=== PATIENT | female | born 2000 | race Caucasian/White ===

== ENCOUNTER 2024-05-24 19:19 | Emergency (ER) | payer BC, SELFPAY ==
[2024-05-24 19:29] VITALS: BP 126/85; PULSE 98; RESP 18; TEMP 36.8; O2SAT 98; BMI 21.5
--- NOTE | 2024-05-24 19:48 | ED.GENADULT ---
HPI - General Adult General Chief complaint: Urogenital Problems, Female Stated complaint: Severe Menstrual pain, nausea Time Seen by Provider: 05/24/24 19:38 Source: patient and family Mode of arrival: ambulatory Limitations: no limitations History of Present Illness HPI narrative: 23-year-old female presenting with painful menstrual cramps. Menses started today. Cramping started this morning. She took Naprosyn this morning which did help, Naprosyn this evening did not help as much. She has been lying in bed most of the day. Feels nauseated but has not vomited. No fevers or chills. Pain is suprapubic and bilateral. Radiate to her back. This is normal pain location when she has her menses. Patient states that 1 time she had pain this bad when she was a teenager that she can remember, otherwise she has pain that is quite uncomfortable but she can not tolerate it. Patient denies sexual activity. Denies diarrhea or constipation. Denies urinary frequency, urgency or dysuria. Denies pain radiating into the groin. Denies blood in her urine. Related Data Previous Rx's ?Medication ?Instructions ?Recorded ketorolac 10 mg tablet 10 mg PO TID 5 days #15 tabs 05/24/24 Allergies Allergy/AdvReac Type Severity Reaction Status Date / Time No Known Drug Allergies Allergy Verified 05/24/24 19:33 Review of Systems Status of ROS: Reports: 10 or more systems reviewed and unremarkable except as noted in History and below Exam Narrative: Exam Narrative: Well-nourished well-developed patient in no acute distress. Alert and oriented. Answers questions appropriately. Mood and affect are appropriate. Thoughts are goal oriented and rational. No tangential or magical thinking noted. Patient speaks in full sentences without needing to catch her breath. HEENT: Normocephalic atraumatic. Pupils are equally round reactive to light. Extraocular muscles are intact. Conjunctivae are moist without any icterus noted. Moist mucous membranes. Cardiovascular: Heart is regular rate and rhythm. Lungs: Clear to auscultation bilaterally. Abdomen: Soft and nondistended with normal bowel sounds. No guarding or rebound. She does have suprapubic tenderness. Extremities: Bilateral lower extremities are without edema. Skin: Well perfused without any obvious rashes. Const: Vital Signs, click to edit/add: Vital Signs - 24 hr 05/24/24 19:29 Temperature 98.3 F Pulse Rate [Right Pulse Oximeter] 98 Respiratory Rate 18 Blood Pressure [Ri ght Upper Arm] 126/85 Pulse Oximetry 98 Oxygen Delivery Me thod Room Air Course Course ED Course: Differential diagnoses includes dysmenorrhea. Less likely given the location and in association with her menses - appendicitis, pancreatitis, ischemic bowel. I do not think that this represents ovarian torsion. Other things to consider include UTI. At this point in time patient does not wish to have any laboratory investigations done as she has a fear of needles. She also does not want any IV or IM medications. Therefore we settled on oral Toradol and Zofran. We will also check a UA, urine test and urine culture. UA was unremarkable, test was negative. Patient felt significantly better after treatment. Vital Signs Vital signs: Initial Vital Signs Temperature 98.3 F 05/24/24 19:29 Temperature Source Temporal Artery Scan 05/24/24 19:29 Pulse Rate 98 05/24/24 19:29 Pulse Rhythm Regular 05/24/24 19:29 Pulse Strength 3+ Normal 05/24/24 19:29 Respiratory Rate 18 05/24/24 19:29 Blood Pressure 126/85 05/24/24 19:29 Blood Pressure Mean 98 05/24/24 19:29 Blood Pressure Position Sitting 05/24/24 19:29 Pulse Oximetry 98 05/24/24 19:29 Oxygen Delivery Method Room Air 05/24/24 19:29 Vital Signs Temperature 98.3 F 05/24/24 19:29 Pulse Rate 98 05/24/24 19:29 Respiratory Rate 18 05/24/24 19:29 Blood Pressure 126/85 05/24/24 19:29 Pulse Oximetry 98 05/24/24 19:29 Oxygen Delivery Method Room Air 05/24/24 19:29 Temperature 98.3 F 05/24/24 19:29 Pulse Rate 98 05/24/24 19:29 Respiratory Rate 18 05/24/24 19:29 Blood Pressure 126/85 05/24/24 19:29 Pulse Oximetry 98 05/24/24 19:29 Oxygen Delivery Method Room Air 05/24/24 19:29 Medications Administered Medications: Discontinued Medications Generic Name Dose Route Start Last Admin Trade Name Freq PRN Reason Stop Dose Admin Ketorolac Tromethamine 10 mg 05/24/24 19:43 05/24/24 19:50 Ketorolac 10 Mg Tablet PO 05/24/24 19:44 10 mg ONCE ONE Administration Ondansetron HCl 4 mg 05/24/24 19:43 05/24/24 19:51 Ondansetron Odt 4 Mg Tab PO 05/24/24 19:44 4 mg ONCE ONE Administration Medical Decision Making MDM Narrative Medical decision making narrative: 23-year-old female with dysmenorrhea. Will send the patient home with some Toradol to take as needed. Lab Data Lab results reviewed: Yes I reviewed the patient's lab results Labs: Lab Results 05/24/24 Range/Units 20:00 Urine Color Yellow (Yellow) Urine Appearance Slightly Cloudy A (Clear) Urine pH 7.5 (5.0-8.5) Ur Specific [place] 1.015 (1.000-1.030) Urine Protein Negative (Negative) Urine Glucose (UA) Negative (Negative) Urine Ketones Negative (Negative) Urine Blood 3+ A (Negative) Urine Nitrite Negative (Negative) Urine Bilirubin Negative (Negative) Urine Urobilinogen 0.2 (0.2-1.0) Ur Leukocyte Esterase Negative (Negative) Urine RBC 0-2 (0-2) Urine WBC 0-2 (0-5) Ur Squamous Epith Cells Few (None-Few) Urine Bacteria Few A (None) Urine HCG, Qual Negative (Negative) Discharge Plan Discharge Clinical Impression: Dysmenorrhea Patient Disposition: Home, Self-Care Condition: Improved Instructions: Dysmenorrhea (ED) Prescriptions: New ketorolac 10 mg tablet 10 mg PO TID 5 Days Qty: 15 0RF Follow Up/Referrals: Provider,Not a Local [Primary Care Provider] - Stand Alone Forms: [employer] Info Instructions
[2024-05-24] MEDS: KETOROLAC 10 MG TABLET PO (19:50)
[2024-05-24] MEDS: ONDANSETRON ODT 4 MG TAB PO (19:51)
--- OUTSIDE RECORDS SUMMARY | 2024-05-24 19:57 | XMS_ITS | Encounter Summary ---
Author Organization [facility] Address [address] [place] [id number] Care Team Providers Care Photography Manager Name Role Phone Unavailable Primary Care Provider Unavailabl e Reason for Visit * Reason Comments Abdominal Pain Encounter Details Date Type Department Care Team (Late st Contact Info) Description 05/24/2024 Nurse Triage [facility] [address] [facility] [place] [address] Unassigned, Provider [address] [place] [address] Abdominal Pain Social History Tobacco Use Types Packs/Day Years Used Date Smoking Tobacco: Never Smokeless Tobacco: Never Comments No Sex and Gender Information Value Date Recorded Sex Assigned at Not on file Legal Sex Female 12:16 PM [employer]GETABLE [employer] Gender Identity Not on file Sexual Orientation Not on file documented as of this encounter Nursing Notes * Lucia Dawson RN - 05/24/2024 6:39 PM CDT Situation/Background (brief explanation of current symptoms/situation): Patient complains of severelower abdominal pain all day with her menses. Rates pain 8 on 1-10 pain intensity scale. Menses is not heavy. Denies fever, vomiting or diarrhea. Aleve is not helping her pain. Reviewed pertinent medical history (as relates to the call): Yes Reviewed pertinent medications (as relates to the call): Yes Reason for Disposition [1] SEVERE pain (e.g., excruciating) AND [2] present > 1 hour Protocols used: Abdominal Pain - [id number] She will go to ED now. * Oneyda De Jesus - 05/24/2024 6:36 PM CDT Symptoms Describe your symptoms (if pain, include location): Severe abdominal pain, Nausea When did they start? 05/24/24 Additional comments (related to the above concern): Insurance verified and confirmed with patient? Yes If a prescription is needed, patient would like it filled at the pharmacy listed in Medication Management. Preferred communication method: Phone Call. Is it okay to leave a detailed message on your voicemail? Yes Is there anything else I can help you with today? No documented in this encounter Plan of Treatment Not on file documented as of this encounter Visit Diagnoses Not on filedocumented in this encounter
--- OUTSIDE RECORDS SUMMARY | 2024-05-24 19:57 | XMS_ITS | Clinical Summary ---
Author Organization [facility] Address [address] [place] [id number] Care Team Providers Care Edge Setter Name Role Phone Pcp, No Primary Care Provider Unavailabl e Allergies No known active allergies Medications desvenlafaxine succinate (PRISTIQ) 100 mg extended release tablet Take 100 mg by mouth once daily in the morning. Active levomefolate, L-methylfolate, 15 mg - algal oil 90.314 mg (DEPLIN) capsule Take 1 Capsule by mouth once daily. Active hydrOXYzine HCL (ATARAX) 25 mg tablet Take 25 mg by mouth three times daily. Active Active Problems Problem Noted Date Diagnosed Date Fatigue 10/17/2023 Assessment & Plan (10/17/2023 3:06 PM CDT): A/P check iron and thyroid levels Anxiety 10/17/2023 Assessment & Plan (10/17/2023 3:05 PM CDT): A/P reviewed plan per psychiatry Social History Tobacco Use Types Packs/Day Years Used Date Smoking Tobacco: Never Smokeless Tobacco: Never Tobacco Cessation:Counseling Given: Not Answered Alcohol Use Standard Drinks/Week Comments Not Currently 0 (1 standard drink = 0.6 oz pur e alcohol) PHQ-2 Answer Date Recorded PHQ-2 TOTAL SCORE 0 10/17/2023 Social Connections Answer Date Recorded Frequency of Communication with Friends and Fami ly Not on file 10/17/2023 Comments No Sex and Gender Information Value Date Recorded Sex Assigned at Not on file Legal Sex Female 10:35 AM CDT Gender Identity Not on file Sexual Orientation Not on file Obstetrics History Last Filed Vital Signs Vital Sign Reading Time Taken Comments Blood Pressure 120/82 10/17/2023 2:46 PM CDT Pulse 89 10/17/2023 2:46 PM CDT Temperature - - Respiratory Rate - - Oxygen Saturation - - Inhaled Oxygen Concentration - - Weight 58.5 kg (128 lb 14.4 oz) 10/17/2023 2:46 PM CDT Height 165.1 cm (5' 5) 10/17/2023 2:46 PM CDT Body Mass Index 21.45 10/17/2023 2:46 PM CDT Plan of Treatment Health Maintenance Due Date Last Done Comments Tdap 2013 HIV for age 15-65 2017 HPV series for age 9-26 (1 - 3-dose series) 2017 Chlamydia for age 16-24 2018 Hepatitis C screening for ag e 18-79 2020 Tetanus booster 2022 Pap test for age 21-65 07/14/2023 COVID-19 vaccine series ( season) 2023 Influenza Vaccine (#1) 2023 BMI (ht and wt on same day) for age 18+ 10/16/2024 10/17/2023 Depression screening for age 12+ 10/16/2024 10/17/19 24 Meningococcal series for age 11-21 Aged Out No longer eligible based on patient's age to complete this topic Pneumococcal series for age 6-49 Aged Out No longer eligible based on patient's age to complete this topic Insurance [employer] Care Teams Edge Setter Relationship Specialty Start Date End Date Pcp, No . PCP - General 10/17/23
--- OUTSIDE RECORDS SUMMARY | 2024-05-24 19:57 | XMS_ITS | Clinical Summary ---
[facility] Address [address], [place] [address] Care Team Providers Care Emergency Medicine Nurse Practitioner Name Role Phone Unavailable Primary Care Provider Unavailabl e Source Comments You are receiving this document as you are listed as the primary care provider,follow-up provider, or the patient has been referred to you for consultation.This is in compliance with the Medicare andMedicaid EHR Incentive Program,which states Providers who transition their patient to another setting of careor provider of care or refers their patient to another provider of care shouldprovide summary care record for each transition of care or referral. [facility] Allergies No known active allergies Medications desvenlafaxine (PRISTIQ) 100 MG 24 hour release tablet Take 1 Tablet (100 mg) by mouth daily. 05/14/2022 Active R-Xnwzygxzdumf-O lgae (DEPLIN 7.5) 7.5-90.314 MG CAPS 12/01/2021 Active Active Problems No known active problems Encounters Date Type Department Care Team Description 05/24/2024 Nurse Triage [facility] [address] [place] [id number] Unassigned, Provider Abdominal Pain from Last 3 Months Social History Tobacco Use Types Packs/Day Years Used Date Smoking Tobacco: Never Smokeless Tobacco: Never Tobacco Cessation:Counseling Given: Not Answered Comments No Sex and Gender Information Value Date Recorded Sex Assigned at Not on file Legal Sex Female 12:16 PM [employer] Gender Identity Not on file Sexual Orientation Not on file Last Filed Vital Signs Vital Sign Reading Time Taken Comments Blood Pressure 125/81 05/17/2022 8:27 AM [employer] Pulse 92 05/17/2022 8:27 AM [employer] Temperature 36.7 C (98.1 F) 11/23/2023 12:43 PM CDT Respiratory Rate 16 05/17/2022 8:27 AM [employer] Oxygen Saturation 98% 05/17/2022 8:27 AM [employer] Inhaled Oxygen Concentration - - Weight 58.1 kg (128 lb) 11/16/2023 12:15 PM CDT Height 164.5 cm (5' 4.75) 11/16/2023 12:15 PM C DT Body Mass Index 21.47 11/16/2023 12:15 PM CDT Plan of Treatment Health Maintenance Due Date Last Done Comments Cervical Cancer Screening Due 2002 Chlamydia 2002 Hep C Screening (Preventive Services) 2002 MenB Immunization Discussion 2002 HPV Vaccine (1 - 3-dose series) 2017 HIV Screening (Preventive Services) 2018 Adult Preventive Visit 2020 DTaP/Tdap/Td (1 - Tdap) 2021 HepB (1) 2021 COVID-19 Vaccine (1 - 2023-2 5 season) 2023 Influenza (#1) 2023 Zoster/Shingles (1 of 2) 2052 HepA Aged Out No longer eligi ble based on patient's age to complete this topic Hib Aged Out No longer eligi ble based on patient's age to complete this topic IPV (Polio) Aged Out No longer eligi ble based on patient's age to complete this topic MCV4 Aged Out No longer eligi ble based on patient's age to complete this topic Pneumococcal Aged Out No longer eligi ble based on patient's age to complete this topic Insurance [facility]
[2024-05-24 20:09] LABS: Appearance Urine Slightly Cloudy (Clear); Bilirubin Urine Negative (Negative); Blood Urine 3+ (Negative); Color Urine Yellow (Yellow); Glucose Urine Negative (Negative); Ketones Urine Negative (Negative); Leukocyte Esterase Urine Negative (Negative); Nitrite Urine Negative (Negative); Protein Urine Negative (Negative); Specific Gravity Urine 1.015 (1.000-1.030); Urobilinogen Urine 0.2 (0.2-1.0); pH Urine 7.5 (5.0-8.5)
[2024-05-24 20:15] LABS: Bacteria Urine Few; RBC Urine 0-2 (0-2); Squamous Epithelial Cell Urine Few (None-Few); WBC Urine 0-2 (0-5)
[2024-05-24 20:28] LABS: Ur HCG Qualitative* Negative (Negative)
== END 2024-05-24 20:34 | disposition home or self-care (01) ==
PROVIDERS: Emergency Provider Family Medicine
DX: J45.901 Unspecified asthma with (acute) exacerbation (principal)
CPT/HCPCS: 81001; 81025; 87086; 99283; 99284; A9270